=== PATIENT | female | born 1960 | race Caucasian/White ===

== ENCOUNTER → 2023-01-21 | Outpatient (CLI) | payer BC ==
--- NOTE | 2023-01-21 14:49 | USB ---
Reason for Exam: Hx of breast cancer, mastectomy. Risk Values: Christie 5 year model risk: 1.1%. NCI Lifetime model risk: 4.3%. Technique: Method: Whole Breast Handheld. Findings: The whole breast of both breasts and the axilla of both breasts were scanned. Hypoechoic lesion at the left 2:00 position 9 cm from the nipple. Several hypoechoic lesions were present previously. Left axillary tail lymph node seen without abnormal appearing lymph node at this time. Six-month follow-up ultrasound is recommended. Right breast reveals no solid or cystic lesions at this time. Overall Assessment: Probably benign, BI-RAD 3 Management: Diagnostic Breast Ultrasound of the left breast. A clinical breast exam by your physician is recommended on an annual basis and results should be correlated with mammographic findings. This exam should not preclude additional follow-up of suspicious palpable abnormalities. Results were given to the patient verbally at the time of exam. Electronically signed and approved by: Bo Sal M.D. [facility]
== END | disposition home or self-care (01) ==
LOC: RADUSWWP 10:54
PROVIDERS: ATTEND Obstetrics & Gynecology
DX: Z85.3 Personal history of malignant neoplasm of breast (principal)